=== PATIENT | female | born 1930 | race Caucasian/White ===

== ENCOUNTER 2017-04-23 18:41 | Inpatient (IN) | payer MEDICARE, OTHER ==
[2017-04-23] MEDS ORDERED: Ondansetron HCl/PF 4 MG/2 ML Vial ONE (18:59)
[2017-04-23] MEDS ORDERED: Dextrose 5% in Water 1,000 ML IV PRN ×2 (19:41→20:01)
[2017-04-23] MEDS ORDERED: Dextrose 50% Abboject 50 ML SYRINGE SLOW IVP PRN ×2 (19:41→20:01)
[2017-04-23] MEDS ORDERED: HumaLOG 300 UNITS/3 ML VIAL SC PRN (20:01)
--- NOTE | 2017-04-23 20:32 | RAD ---
FOUR VIEWS LEFT SHOULDER 04/23/17 HISTORY: Left shoulder pain after fall. 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 There is narrowing of the subacromial space lik sergey related to chronic rotator cuff tear. There is mild left glenohumeral osteoarthropathy present. N o fracture or dislocation. Diffuse osteopenia is noted. Degenerative change noted in the spine. Vascu lar calcification seen in the thoracic aorta. IMPRESSION: 1. 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 2. Findings suggestive of chronic rotator cuff tear. 3. Osteopenia. 4. No acute fracture. POS: [facility]
[2017-04-23] MEDS ORDERED: Famotidine 20 MG TAB PO SCH (21:00)
[2017-04-23 21:20] LABS: CKMB 3.4 ng/mL (0-6.6); Troponin I 0.285 ng/mL (< 0.028)
[2017-04-23] MEDS ORDERED: Promethazine HCl 25 MG/ML VIAL IM/IV PRN (21:28)
[2017-04-23] MEDS ORDERED: Acetaminophen 650 MG in Premix Bag 1 BAG IVPB SCH (21:30)
[2017-04-23] MEDS ORDERED: Dextrose 5 % And 0.9 % NaCl 1,000 ML IV SCH (21:30)
[2017-04-23] MEDS: Scopolamine 1.5 mg/72 hour Patch TD SCH (21:42)
--- NOTE | 2017-04-23 23:28 | CON ---
DATE OF CONSULTATION: 04/23/2017 ATTENDING PHYSICIAN: Ugo Staley M.D. HISTORY OF PRESENT ILLNESS: This patient is an 87-year-old female with a past medical hist ory of hypertension, hypothyroid, who presented to the [facility] transfer from [place] for a cute intracranial hemorrhage following head injury, which resulted when she slipped on the ice at 153 0 this afternoon while walking to her mailbox, unknown if patient sustained LOC. The patient cannot remember the event. She states that her family was with her during the injury and called EMS. The p ok was taken to the [place] ER where she was evaluated with CT head, which is notable for ri ght temporal and right parietal cerebral contusion, subdural hematoma and bilateral subarachnoid hemo rrhage. There was no midline shift. CT of the cervical spine was negative for any acute injuries, b ut patient did continue to complain of neck pain; therefore, it was placed in a cervical collar. I a m seeing the patient at bedside. She is alert and oriented x4. She has normal speech. She has good strength to right upper and lower extremity. She has left-sided hemiparesis with flaccid paralysis of the left upper extremity; however, she is able to wiggle her left toes. PAST MEDICAL HISTORY: Hypertension, hypothyroidism. PAST SURGICAL HISTORY: Left hip surgery. SOCIAL HISTORY: The patient lives at home. She does not smoke, drink or use any drugs. ALLERGIES: She has no known drug allergies. REVIEW OF SYSTEMS: Per HPI. PHYSICAL EXAMINATION: VITAL SIGNS: Blood pressure is 132/55, respiration rate is 19, patient is 97% on room air, pulse is 78, and temperature is 98.6. CONSTITUTIONAL: She is in no acute distress. She is alert and oriented x4. HEENT: She has small area of contusion and soft tissue swelling over the left parietal region. EYES: PERRLA. Extraocular movements intact. Sclerae white. ENT: Oral mucosa is pink, intact, and moist. No evidence of trauma to the nose. NECK: She is currently in a cervical collar. She is tender to palpation diffusely over the cervical spine. RESPIRATORY: She is breathing comfortably. No evidence of dyspnea, symmetric chest expansion. CARDIOVASCULAR: Regular rate and rhythm. MUSCULOSKELETAL: She has good strength in right upper and right lower extremity. Left-sided hemipar esis is present. The patient has flaccid paralysis to the left upper extremity. She is able to wigg le her left toes. NEUROLOGIC: The patient is alert and oriented x4. She has normal speech pattern. Left-sided hemipa resis. ASSESSMENT: Acute traumatic right temporal and right parietal cerebral contusion and subdural hemato ma, bilateral subarachnoid hemorrhages, which are traumatic. PLAN: The patient will be admitted to the ICU for q.1 neuro checks and close monitoring. Head of e bed will be elevated at 30 degrees. We will monitor the patient's blood pressure closely with a go al of systolic blood pressure less than 150. She does report history of aspirin use and this will be discontinued. We will plan to repeat head CT for further evaluation in the morning. The patient is admitted primarily to the Trauma Service. I have discussed this plan with Dr. Staley who is in reement. Please reach out to Neurosurgery Service for additional questions or concerns.
--- NOTE | 2017-04-23 23:44 | HP ---
DATE OF SERVICE: 04/23/2017 ATTENDING PHYSICIAN: Dr. Odonnell. TRAUMA ACTIVATION: Not applicable. HISTORY OF PRESENT ILLNESS: This is an 87-year-old female who presented to [facility] as a transfer from [facility]. Per patient, she was walking outside of her house to her mailbox, slipped on the ice and fell backward, striking her head. She was taken to the emergency room and found to have bilateral subarachnoid hemorrhages with intraparenchymal hematomas right greater than left. The patient was noted to have left-sided hemiparesis. The patient is unsure as to whether or not she lost consciousness. She was transferred to [facility] for further evaluation and care. Upon my evaluation, Neurosurgery has seen the patient. She has a GCS of 15. Her only complaint is some bilateral lateral neck pain. There is no midline tenderness. The patient does appear to have some slowed response and there was some report of dysarthria at the outside facility, unclear if this is her baseline or new since her accident as there is no family at bedside. PAST MEDICAL HISTORY: ALLERGIES: The patient denies any allergies. CHRONIC MEDICAL ILLNESSES: Include hypertension, hypothyroidism, diabetes. PAST SURGICAL HISTORY: Left hip surgery, appendectomy, hysterectomy. SOCIAL HISTORY: The patient lives with daughter. Typically ambulates independently. Denies alcohol, tobacco or illicit drug use. HOME MEDICATIONS: Synthroid, unknown; antihypertensive, dose is unknown at this time. FAMILY HISTORY: Noncontributory in this patient. REVIEW OF SYSTEMS: Negative except as indicated in the HPI. PHYSICAL EXAMINATION: VITAL SIGNS: On evaluation, blood pressure 127/47, heart rate 77, O2 sat 95% on room air, respirations 16. GENERAL: Elderly appearing female, in no acute distress, resting in bed. HEENT: Head: Normocephalic. Eyes: Pupils are PERRL. Extraocular movements are intact. There is a right parietal hematoma. NECK: Supple. Trachea is midline. Ramsey C-collar is in place. CHEST/PULMONARY: Normal work of breathing. Symmetric rise. Appears atraumatic. Lungs are clear to auscultation bilaterally. CARDIOVASCULAR: Regular rate and rhythm. GASTROINTESTINAL/ABDOMEN: Atraumatic, soft, nontender, nondistended. Bowel sounds are positive. BACK: Being reported within normal limits. MUSCULOSKELETAL: No tenderness to palpation bilaterally, there is 0/5 strength in the bilateral left extremities. Strength within normal limits in right- sided extremities. NEUROLOGIC: GCS of 15. No sensory deficit noted. LABORATORY DATA: WBC 14.2, hemoglobin 10.8, hematocrit 32.7, platelet count 132. INR 1.1. Sodium 143, potassium 3.7, chloride 107, carbon dioxide 25, BUN 25, creatinine 1.07, glucose 195, AST and ALT within normal limits. Troponin 0.063. RADIOGRAPHIC FINDINGS: EKG with nonspecific ST-T wave abnormality. T-spine CT without evidence of acute fracture or dislocation, but evidence of degenerative changes. CT of the C-spine negative for acute fracture or dislocation, but showed evidence of degenerative changes. CT of the brain, read by Radiology as having bilateral subarachnoid hemorrhage with larger parenchymal hematoma in the right frontoparietal region and a small parenchymal hematoma in the right temporal lobe with evidence of left anterior frontal subdural hematoma. X-ray of the left shoulder pending. Assessment: Mechanical fall, SAH, SDH, IPH. L shoulder pain. Hx HTN, Hx DM. PLAN: Admit to Trauma Services. CCU for closer monitoring per Neurosurgery's recommendations. Frequent neuro checks. Pain control. DVT and gastritis prophylaxis as appropriate. PT, OT, speech evaluation. Rehab screen. Trend troponins. A.m. CT per Neurosurgery. Head of bed 30 degrees. Systolic blood pressure 150 or less. Trauma attending has been notified of admission. Plans for admission were discussed with the patient at bedside, who localized her agreement. All questions were answered at the time of this dictation. SOL
[2017-04-24] MEDS: traMADol HCl 50 MG TAB PO PRN (00:57)
[2017-04-24 04:33] LABS: #Lymphocytes 0.6 thou/uL (1.20-3.40); #Monocytes 0.4 thou/uL (0.11-0.59); #Neutrophils 7.4 thou/uL (1.40-6.50); %Basophils 0.1 % (0.0-1.0); %Eosinophils 0.1 % (0.0-10.0); %Lymphocytes 7.4 % (21.0-51.0); %Monocytes 5.2 % (0.0-10.0); %Neutrophils 87.2 % (42.0-75.0); Hemoglobin 10.2 g/dL (12.0-16.0); Mean Corpuscular HGB CONC 32.9 g/dL (32.0-36.0); Mean Corpuscular Hemoglobin 30.2 pg (27.0-31.0); Mean Corpuscular Volume 91.6 fl (81.0-99.0); Mean Platelet Volume 9.2 fL (7.4-10.4); PLT Morphology Comment Appears Decreased; Platelet Count 112 thou/uL (130-400); RBC Distribution Width 11.7 % (11.5-14.5); White Blood Cell (WBC) Count 8.5 thou/uL (4.8-10.8)
[2017-04-24 04:42] LABS: CKMB 3.3 ng/mL (0-6.6)
[2017-04-24] MEDS: Acetaminophen 500 MG TAB PO SCH ×3 (05:22→17:08)
[2017-04-24 05:32] LABS: Anion Gap 12 mmol/L (10-20); BUN (Urea Nitrogen) 24 mg/dL (9.8-20.1); Calc. Creatinine Clearance 25 mL/min (70-130); Calcium 10.5 mg/dL (7.8-10.44); Carbon Dioxide 24 mmol/L (23-31); Chloride 107 mmol/L (98-107); Estimated GFR-MDRD 41; Glucose 184 mg/dL (83-110); Magnesium 2.1 mg/dL (1.6-2.6); Phosphorus 2.7 mg/dL (2.3-4.7); Potassium 3.9 mmol/L (3.5-5.1); Sodium 139 mmol/L (136-145)
[2017-04-24] MEDS: Famotidine 20 MG TAB PO SCH (08:21)
[2017-04-24] MEDS: Sodium Chloride 0.9% 1,000 ML IV SCH (08:21)
[2017-04-24] MEDS: Ondansetron HCl/PF 4 MG/2 ML Vial IVP PRN (12:54)
--- NOTE | 2017-04-24 14:25 | CON ---
HISTORY: Corrina Headley is an 87-year-old white female without any previous cardiac problems. She presented yesterday to the [facility] after she slipped on the ice and fell backwards striking her head. It is unclear if she was rendered unconscious from the fall. She does not remember much of the incident and is not very talkative. She has been found to have an elevated troponin. She denies any chest discomfort since she has been hospitalized. She does state at times she has some pain in her upper left chest around her shoulder area. She is unable to give me any history regarding how long it lasts or how often she gets that. PAST MEDICAL HISTORY: Hypertension, hypothyroidism, diabetes. MEDICATIONS: Ramipril 10 mg daily, hydrochlorothiazide 25 q.a.m., levothyroxine 75 mg daily. ALLERGIES: None. OPERATIONS: Left hip surgery, appendectomy, and hysterectomy. SOCIAL HISTORY: She does not smoke or drink. She lives with her daughter. FAMILY HISTORY: Negative for coronary artery disease. REVIEW OF SYSTEMS: Twelve point review of systems is very difficult to obtain with the patient not answering most questions. PHYSICAL EXAMINATION: VITAL SIGNS: 113/46, pulse is 70. HEENT: PERRL. NECK: Patient is in a neck brace. CHEST: Clear. CARDIAC: S1 and S2 are normal, without any S3, S4 or murmurs. ABDOMEN: Normal bowel sounds, without tenderness or organomegaly. EXTREMITIES: Revealed no clubbing, cyanosis or edema. NEUROLOGIC: Patient is lethargic, but moves all extremities. SKIN: Warm and dry. LABORATORY DATA: EKG revealed normal sinus rhythm with nonspecific ST changes ( EKG is incorrectly interpreted by the computer as accelerated junctional rhythm , but there are P waves present). Hemoglobin 10.2, hematocrit 31.1, white count 8500, platelets 112,000, INR 1.1, sodium 139, potassium 3.9, chloride 107 , carbon dioxide 24, BUN 24, creatinine 1.24 and MB are normal x2. Troponin I is 0.285 and then increased to 0.484, blood sugars were 180, [address] revealed bilateral subarachnoid hemorrhages and a small left anterior frontal subdural hematoma. Echocardiogram revealed ejection fraction of 55-60% with evidence of diastolic dysfunction, moderate calcification of the anterior leaflet of mitral valve, mild mitral regurgitation, mild to moderate tricuspid regurgitation and mild pulmonic regurgitation. IMPRESSION: 1. Bilateral subarachnoid hemorrhage and small left anterior frontal subdural hematoma after head trauma when slipping on the ice. 2. Hypertension. 3. Hypothyroidism. 4. Questionable history of diabetes, she is not on any diabetic medications on her home medicine list. PLAN: The patient certainly may have had a STEMI, although this also could represent demand ischemia. Her CK-MBs are normal. The patient is not a candidate for any type of cardiac intervention at this time with her intracranial bleeds. We will continue to follow the patient with you at some later time. Further evaluation may be warranted after she has recovered from her current head trauma. SOL
--- NOTE | 2017-04-24 15:38 | CT ---
CT OF HEAD NONCONTRAST 04/24/17 COMPARISON: 04/23/17 CLINICAL HISTORY: Intracranial hemorrhage, followup. FINDINGS: Redemonstration of diffuse extra-axial as well as intra-axial hemorrhage. Nidus of parenchymal hemor rhage is present at the high right frontal lobe with prominent degree of surrounding vasogenic edema. Redemonstration of parenchymal hematoma at the lateral right temporal lobe and the anterior left fro ntal lobe. Diffuse subarachnoid hemorrhage remains. Ventricular system is grossly stable. Midline str uctures are preserved at midline. IMPRESSION: Redemonstration of diffuse intra-axial and extra-axial hemorrhage bilaterally with multifocal parench ymal contusions of each cerebral hemisphere. No new significant midline shift. Diffuse subarachnoid h emorrhage remains, bilaterally. Interval evolution of left subdural hemorrhage with majority now demonstrating isodensity relative to CSF. POS: [facility]
[2017-04-24] MEDS ORDERED: FLU VACC TS2017-18 (>65YR) 0.5 ML SYRINGE IM ONE (16:00)
[2017-04-24] MEDS ORDERED: Prevnar 13-Val Conj/PF 0.5 ML SYRINGE IM ONE (16:00)
--- NOTE | 2017-04-24 16:01 | PRG ---
DATE OF SERVICE: 04/24/2017 SUBJECTIVE: The patient is hospital day #2 status post ground level fall in which she sustained a subarachnoid, subdural and intraparenchymal hemorrhage and also was noted to have some significant left-sided weakness. The patient had no issues overnight. This morning, complains primarily of headache, but otherwise states that she is feeling "okay." The patient is a rather poor historian, will follow some very basic commands primarily with her right side with definite left-sided hemiparesis. The patient will answer some simple questions. Unfortunately, there are no family members at bedside to tell us what her baseline is and when the hemiparesis may have started, whether it was before or after the fall. PHYSICAL EXAMINATION: VITAL SIGNS: Temperature is 98.4, heart rate 70, blood pressure 113/46, respirations 18, and oxygen saturation is 100% on room air. GENERAL: Patient is resting comfortably in bed. She is awake. Her Jodie coma scale was 15. Again, does not move her left side. HEENT: Shows a small contusion to the right side of her posterior lateral scalp. The remainder of her HEENT is unremarkable. Trachea is midline. No JVD. LUNGS: Chest is clear to auscultation with moderate inspiratory and expiratory effort. HEART: Regular rate and rhythm. ABDOMEN: Soft, flat with active bowel sounds. EXTREMITIES: Pulses are 2+ in all 4 extremities. Strength in the right upper and lower are 4/5 and the left side of the upper extremity is flaccid. There does seem to be some movement when asked to wiggle the left toes, but this is very subtle. LABORATORY DATA: White blood cell count 8.5, hemoglobin 10.2, hematocrit 31.1, platelets 112. Sodium 139, potassium 3.9, chloride 107, CO2 of 24, BUN 24, creatinine 1.24, glucose 184, magnesium 2.1, and phosphorus 2.7. There are no radiographs to review this morning. ASSESSMENT AND PLAN: 1. Status post ground level fall. 2. Intercerebral hemorrhage. 3. Probable cerebrovascular accident. 4. Left-sided paralysis. Plan will be to continue supportive care, OT, PT evaluation, speech evaluation and we will consult the stroke team. SOL
[2017-04-24] MEDS: Acetaminophen 1,000 MG in Premix Bag 1 BAG IVPB SCH (19:17)
--- NOTE | 2017-04-25 00:27 | PRG ---
DATE OF SERVICE: 04/24/2017 SUBJECTIVE: This is an 87-year-old female status post fall with traumatic brain injury and left-side d hemiparesis. Repeat CT scan was performed earlier today. She was seen by Cardiology. Patient has remained stable and was transferred from the Intermediate Care Unit to the stroke unit earlier today . Upon my evaluation, the patient did not vocalize any complaints and denied any pain. OBJECTIVE: VITAL SIGNS: Reviewed and stable. GENERAL: Resting in bed, in no acute distress. LUNGS: Breathing is nonlabored. NEUROLOGIC: The patient remains with left-sided deficit. PHYSICAL EXAMINATION: Unchanged from earlier today. ASSESSMENT AND PLAN: As documented daily progress note. Continue care as ordered. Continue to [facility].
[2017-04-25] MEDS: Sodium Chloride 0.9% 1,000 ML IV SCH ×2 (02:12→15:01)
[2017-04-25] MEDS: Acetaminophen 1,000 MG in Premix Bag 1 BAG IVPB SCH ×5 (02:14→23:11)
[2017-04-25 05:56] LABS: #Lymphocytes 1.1 thou/uL (1.20-3.40); #Monocytes 0.6 thou/uL (0.11-0.59); #Neutrophils 5.3 thou/uL (1.40-6.50); %Eosinophils 0.3 % (0.0-10.0); %Lymphocytes 16.1 % (21.0-51.0); %Monocytes 8.7 % (0.0-10.0); %Neutrophils 74.9 % (42.0-75.0); Hemoglobin 9.7 g/dL (12.0-16.0); Mean Corpuscular HGB CONC 32.3 g/dL (32.0-36.0); Mean Corpuscular Hemoglobin 30.1 pg (27.0-31.0); Mean Corpuscular Volume 93.3 fl (81.0-99.0); Mean Platelet Volume 9.7 fL (7.4-10.4); Platelet Count 105 thou/uL (130-400); RBC Distribution Width 11.8 % (11.5-14.5); Red Blood Cell (RBC) Count 3.24 mill/uL (4.20-5.40); White Blood Cell (WBC) Count 7.1 thou/uL (4.8-10.8)
[2017-04-25 06:06] LABS: Anion Gap 10 mmol/L (10-20); BUN (Urea Nitrogen) 25 mg/dL (9.8-20.1); Calc. Creatinine Clearance 26 mL/min (70-130); Calcium 10.4 mg/dL (7.8-10.44); Carbon Dioxide 27 mmol/L (23-31); Chloride 108 mmol/L (98-107); Estimated GFR-MDRD 47; Glucose 112 mg/dL (83-110); Potassium 3.7 mmol/L (3.5-5.1); Sodium 141 mmol/L (136-145)
[2017-04-25] MEDS: Acetaminophen 500 MG TAB PO SCH (07:07)
[2017-04-25] MEDS: Ondansetron HCl/PF 4 MG/2 ML Vial IVP PRN (07:27)
[2017-04-25] MEDS: hydrALAZINE 20 MG/ML VIAL SLOW IVP PRN (07:27)
[2017-04-25] MEDS: Famotidine 20 MG TAB PO SCH (08:00)
[2017-04-25] MEDS: traMADol HCl 50 MG TAB PO PRN (08:55)
[2017-04-25 11:09] VITALS: BMI 15.7
--- NOTE | 2017-04-25 20:57 | PRG ---
DATE OF SERVICE: 04/25/2017 SUBJECTIVE: This is an 87-year-old female status post fall with traumatic brain injury and left-side d hemiparesis. The patient has remained stable throughout the day. Family is currently discussing g oals of care with Palliative Care team. There is a family meeting set up for tomorrow. Pulmonary ev aluation. The patient has no complaint. OBJECTIVE: VITAL SIGNS: Reviewed and stable. GENERAL: The patient resting in bed, in no acute distress. LUNGS: Breathing is nonlabored. NEUROLOGIC: Unchanged from previous. ASSESSMENT AND PLAN: As documented daily progress note. Continue care as ordered. Continue to [facility]. A family meeting per day shift team tomorrow.
[2017-04-26] MEDS: Acetaminophen 1,000 MG in Premix Bag 1 BAG IVPB SCH ×3 (05:23→17:52)
[2017-04-26] MEDS: Levothyroxine Sodium 75 MCG TAB PO SCH (05:28)
[2017-04-26] MEDS: Sodium Chloride 0.9% 1,000 ML IV SCH (09:17)
[2017-04-26] MEDS: Famotidine 20 MG TAB PO SCH (09:18)
[2017-04-26] MEDS: Hydrochlorothiazide 25 MG TAB PO SCH (09:18)
[2017-04-26] MEDS: hydrALAZINE 20 MG/ML VIAL SLOW IVP PRN ×2 (09:25→19:19)
--- NOTE | 2017-04-26 16:39 | PRG ---
DATE OF SERVICE: 04/26/2017 ATTENDING PHYSICIAN: Clement Smith D.O. SUBJECTIVE: The patient is hospital day #4 status post ground level fall in which she sustained a bilateral subarachnoid hemorrhage as well as a subdural hematoma and intraparenchymal hemorrhage, and was also noted to have some significant left-sided hemiparesis. Her main complaint this morning is pain. She had an NG tube placed yesterday that she subsequently pulled out. She is alert and conversational today on exam and has expressed a desire not to have another NG tube placed. OBJECTIVE: GENERAL: Elderly female lying in bed, alert, and talkative, but appearing in pain. HEAD: Normocephalic. Right-sided posterior contusion of the scalp. LUNGS: Clear to auscultation bilaterally. CARDIOVASCULAR: Regular rate and rhythm. ABDOMEN: Soft, nondistended. Normal bowel sounds. MUSCULOSKELETAL: Continued left-sided hemiparesis. Strength 0/5 in left extremities. Strength 4/5 in right extremities. NEUROLOGIC: GCS 15. Alert and oriented x3. ASSESSMENT: 1. Bilateral subarachnoid hemorrhage. 2. Cerebral contusion. 3. Subdural hematoma. 4. Left-sided hemiplegia. 5. History of hypertension. 6. History of hypothyroidism. PLAN: We will start her on a mechanical soft diet as she has expressed a desire not to have an NG tube. Speech language pathology will continue to follow as well PT and OT. Palliative Care has consulted with the patient and her son this morning and they all agreed to rehab eval at [facility]. Continue Ofirmev and tramadol for pain. Continue HCTZ and IV hydralazine for BP management. Continue home levothyroxine for thyroid. This patient was seen and discussed with Dr. Smith who agrees with this assessment and plan. [facility]
[2017-04-26] MEDS: traMADol HCl 50 MG TAB PO PRN (19:56)
[2017-04-26] MEDS: Ondansetron ODT 4 MG TAB PO PRN (20:15)
[2017-04-26] MEDS: Scopolamine 1.5 mg/72 hour Patch TD SCH (21:00)
[2017-04-26] MEDS: Sulfameth/Trimethoprim DS 800-160mg TAB PO SCH (21:00)
[2017-04-26 21:10] LABS: Bilirubin Negative (Negative); Blood, Urine Negative (Negative); Clarity CLEAR (Clear); Glucose, Urine (Dipstick) Negative (Negative); Leukocyte Trace (Negative); Nitrite Negative (Negative); Protein, Urine (Dipstick) Negative (Neg-Trace); Specific Gravity, Urine 1.026 (1.002-1.036); Urobilinogen 0.2 mg/dL (0.2-1.0); pH, Urine 5.5 (5.0-9.0)
[2017-04-26 21:11] LABS: Bacteria/HPF 3+ HPF (None Seen); Hyaline Casts/LPF 0-3 HYALINE CAST LPF (0-3 Hyaline); Pathc Cast-AUWi Flag 0.27 (0-2.49); RBC/HPF 0-3 HPF (0-3); Squamous Epithelial None Seen HPF (0-3)
--- NOTE | 2017-04-26 21:41 | PRG ---
DATE OF SERVICE: 04/26/2017 SUBJECTIVE: This is an 87-year-old female status post mechanical fall, found to have significant intracranial hemorrhage. She is more alert this evening than she was yesterday. However, she is quite tearful and is complaining of dysuria. The patient did have a Villalpando catheter earlier in her hospital stay. OBJECTIVE: VITAL SIGNS: Reviewed, some hypertension, but otherwise stable. GENERAL: The patient is resting in bed in mild distress secondary to pain. Physical exam is otherwise unchanged from earlier today. ASSESSMENT AND PLAN: As documented in daily progress note with the addition of dysuria. We will obtain urinalysis. We will start oral antibiotics for suspected urinary tract infection. Continue pain management as ordered. Addendum: Approximately 2300 pt developed chest pain was noted by RN to have rapid, irregular HR. EKG revealed afib w/RVR. She is hemodynamically stable with an SBP in the 120's, HR 130's O2 98% on NC. BMP from earlier today noted. Will start amio bolus/gtt. Replace electrolytes, obtain CE's, am labs, transfer pt to tele and contact CVM. Additional time spent, 20 minutes at bedside. SOL
[2017-04-26] MEDS ORDERED: Potassium Phosphate 30 MMOL in Sodium Chloride 0.9% 500 ML IVPB SCH (23:15)
[2017-04-26] MEDS ORDERED: Amiodarone HCl 150 MG in Dextrose 5% in Water 100 ML IVPB SCH ×2 (23:30)
[2017-04-27 00:16] LABS: Troponin I 0.755 ng/mL (< 0.028)
[2017-04-27] MEDS: Amiodarone In Dextrose 200 ML IVPB SCH ×2 (00:22→05:46)
[2017-04-27] MEDS: Acetaminophen 500 MG TAB PO SCH ×5 (01:07→20:55)
[2017-04-27] MEDS: Acetaminophen 1,000 MG in Premix Bag 1 BAG IVPB SCH ×4 (01:08→17:28)
[2017-04-27 01:11] LABS: ALT (SGPT) 12 U/L (8-55); AST (SGOT) 27 U/L (5-34); Albumin 3.6 g/dL (3.4-4.8); Alkaline Phosphatase 56 U/L (40-150); Bilirubin, Direct 0.3 mg/dL (0.1-0.3); Bilirubin, Total 0.6 mg/dL (0.2-1.2); Protein, Total 6.5 g/dL (6.0-8.3)
[2017-04-27] MEDS: Levothyroxine Sodium 75 MCG TAB PO SCH (05:47)
[2017-04-27 05:51] LABS: #Lymphocytes 1.1 thou/uL (1.20-3.40); #Monocytes 0.7 thou/uL (0.11-0.59); %Basophils 0.4 % (0.0-1.0); %Eosinophils 0.3 % (0.0-10.0); %Lymphocytes 12.5 % (21.0-51.0); %Neutrophils 78.8 % (42.0-75.0); Hemoglobin 11.5 g/dL (12.0-16.0); Mean Corpuscular HGB CONC 32.3 g/dL (32.0-36.0); Mean Corpuscular Hemoglobin 29.9 pg (27.0-31.0); Mean Corpuscular Volume 92.7 fl (81.0-99.0); Mean Platelet Volume 9.4 fL (7.4-10.4); Platelet Count 128 thou/uL (130-400); RBC Distribution Width 12.1 % (11.5-14.5); Red Blood Cell (RBC) Count 3.83 mill/uL (4.20-5.40); White Blood Cell (WBC) Count 8.9 thou/uL (4.8-10.8)
[2017-04-27] MEDS: Ondansetron ODT 4 MG TAB PO PRN (06:02)
[2017-04-27 06:23] LABS: Anion Gap 16 mmol/L (10-20); BUN (Urea Nitrogen) 23 mg/dL (9.8-20.1); Calc. Creatinine Clearance 28 mL/min (70-130); Calcium 10.5 mg/dL (7.8-10.44); Carbon Dioxide 22 mmol/L (23-31); Chloride 106 mmol/L (98-107); Estimated GFR-MDRD 51; Glucose 117 mg/dL (83-110); Magnesium 2.1 mg/dL (1.6-2.6); Phosphorus 4.4 mg/dL (2.3-4.7); Potassium 3.6 mmol/L (3.5-5.1); Sodium 140 mmol/L (136-145)
[2017-04-27 06:25] LABS: CKMB 12.1 ng/mL (0-6.6); Troponin I 1.511 ng/mL (< 0.028)
[2017-04-27] MEDS ORDERED: Potassium Chloride 40 MEQ in Sodium Chloride 0.9% 500 ML IVPB SCH ×4 (06:45)
[2017-04-27] MEDS ORDERED: Magnesium Sulfate 3 GM in Sodium Chloride 0.9% 100 ML IVPB SCH (07:00)
[2017-04-27] MEDS: Famotidine 20 MG TAB PO SCH (09:52)
[2017-04-27] MEDS: Sulfameth/Trimethoprim DS 800-160mg TAB PO SCH ×2 (09:52→20:55)
[2017-04-27] MEDS: Hydrochlorothiazide 25 MG TAB PO SCH (09:52)
--- NOTE | 2017-04-27 13:13 | PRG ---
DATE OF SERVICE 04/27/2017 ATTENDING PHYSICIAN: Nii Knox M.D. SUBJECTIVE: The patient is an 87-year-old female who was admitted on 2017 status post mechanical fall during which she suffered a traumatic bilateral subarachnoid hemorrhage. She also suffered a subdural hematoma as well as an intraparenchymal hemorrhage. Overnight she complained of chest pain and was found to be in atrial fibrillation with RVR, heart rate in the 130s. She was started on an amiodarone drip after which she converted to normal sinus rhythm. She also had an elevated troponin and was transferred to the [facility] for further monitoring. This morning she was stable, alert and not complaining of any pain. OBJECTIVE: GENERAL: Elderly female lying in bed, alert but quiet. HEENT: Normocephalic. Right-sided posterior contusion of the scalp. LUNGS: Clear to auscultation bilaterally. CARDIOVASCULAR: Regular rate and rhythm. Normal S1 and S2. ABDOMEN: Soft, nondistended, nontender. Normal bowel sounds. MUSCULOSKELETAL: Continued left-sided hemiparesis. Strength 0/5 in left extremities, strength 4/5 in the right extremities. NEUROLOGIC: GCS of 15, alert and oriented x3. LABORATORY DATA: 04/26/2017, 23:59: CK-MB 7.0. Troponin 0.755. 04/27/2016, 23:59: CK-MB is 12.1, troponin is 1.511. Urinalysis: Trace urine ketones, trace leukocyte esterase, 3+ urine bacteria. ASSESSMENT: 1. Bilateral subarachnoid hemorrhage. 2. Cerebral contusion. 3. Subdural hematoma. 4. Left-sided hemiplegia. 5. Atrial fibrillation with rapid ventricular response. 6. History of hypertension. 7. History of hypothyroidism. 8. Urinary tract infection PLAN: We are awaiting family meeting with palliative care. We will continue supportive care in the meantime. Cardiology evaluation pending. She is receiving bactrim for her UTI. This patient was discussed with Dr. Smith, who agrees with the assessment and plan. [facility]
--- NOTE | 2017-04-27 19:59 | PDOC.CTH ---
Cardiology Progress Note - Subjective She went into afib earlier today. Remains minimally responsive. - Objective Vital Signs Temp Pulse Pulse Resp BP BP Pulse Ox 04/27/17 12:02 98.1 F 62 16 150/67 H 94 L 04/27/17 11:40 62 150/67 H Admit Weight 105 lb 2.568 oz Weight 100 lb 6.4 oz 04/26/17 04/27/17 04/28/17 06:59 06:59 06:59 Intake Total 120 Balance 120 - Physical Examination General/Neuro: other: (Unresponsive. ) Neck: no JVD present Lungs: unlabored respirations Heart: RRR Abdomen: NT/ND Extremities: + edema B (trace) - Telemetry Telemetry Rhythm: Afib --> S Ced - Labs Result Diagrams: 04/27/17 05:34 04/27/17 05:34 Troponin/CKMB CK-MB (CK-2) 12.1 ng/mL (0-6.6) H* 04/27/17 05:34 Troponin I 1.511 ng/mL (< 0.028) H* 04/27/17 05:34 - Assessment/Plan 1. Traumatic SAH and SDH. 2. NSTEMI, demand ischemia most likely 3. HTN 4. Paroxismal afib PLAN: - We started amiodarone vernigfht and her afib converted back to sinus rhythm. Continue amio gtt for now. ADDENDUM. Family decided to transfer to inpatient hospice which is reasonable. Will stop amiodarone drip and will transition out of telemetry.
--- NOTE | 2017-04-27 20:29 | PRG ---
DATE OF SERVICE: 04/27/2017 SUBJECTIVE: This is an 87 [id number] status post fall with hemorrhagic brain injury. Last nigh t, the patient went into atrial fibrillation with rapid ventricular response, was found to have a cli mbing troponin and urinary tract infection. Today, the patient has refused care, stating that she do es not want to undergo any further procedure. She has refusing medications. Family was at bedside a nd this was discussed. There are plans to evaluate her for hospice for tomorrow morning. OBJECTIVE: VITAL SIGNS: Reviewed and stable. GENERAL: The patient was resting in bed, in no acute distress. RESPIRATORY: Breathing is nonlabored. ASSESSMENT AND PLAN: As documented in daily progress note. Continue comfort measures. Await hospic e transfer tomorrow. Continue to monitor.
[2017-04-27] MEDS: hydrALAZINE 20 MG/ML VIAL SLOW IVP PRN (20:54)
[2017-04-27] MEDS: Melatonin 3 MG TAB PO PRN (20:55)
[2017-04-28 05:05] LABS: Anion Gap 12 mmol/L (10-20); BUN (Urea Nitrogen) 24 mg/dL (9.8-20.1); Calc. Creatinine Clearance 31 mL/min (70-130); Calcium 10.7 mg/dL (7.8-10.44); Carbon Dioxide 26 mmol/L (23-31); Chloride 105 mmol/L (98-107); Estimated GFR-MDRD 56; Glucose 119 mg/dL (83-110); Magnesium 2.1 mg/dL (1.6-2.6); Phosphorus 2.7 mg/dL (2.3-4.7); Potassium 3.7 mmol/L (3.5-5.1); Sodium 139 mmol/L (136-145)
[2017-04-28] MEDS: Acetaminophen 500 MG TAB PO SCH ×3 (05:13→17:21)
[2017-04-28] MEDS: Levothyroxine Sodium 75 MCG TAB PO SCH (05:13)
[2017-04-28] MEDS: Ondansetron HCl/PF 4 MG/2 ML Vial IVP PRN (09:28)
[2017-04-28] MEDS: Sulfameth/Trimethoprim DS 800-160mg TAB PO SCH ×2 (12:15→21:10)
[2017-04-28] MEDS: Hydrochlorothiazide 25 MG TAB PO SCH (12:15)
[2017-04-28] MEDS: Famotidine 20 MG TAB PO SCH (12:15)
--- NOTE | 2017-04-28 16:24 | PRG ---
DATE OF SERVICE: 04/28/2017 SUBJECTIVE: The patient is an 87-year-old female who was admitted on 2017 status post mechanical fall during which she suffered a traumatic bilateral subarachnoid hemorrhage. She has also suffered a subdural hematoma as well as an intraparenchymal hemorrhage. She had an episode of atrial fibrillation with RVR, heart rate in the 130s, and was started on an amiodarone drip after which she converted to normal sinus rhythm. This morning she is nauseous and has been dry heaving. She is refusing further medications including medications for nausea. After consultation with family, the decision was made to transfer the patient to hospice care, although at this point, it is unclear whether she will go to inpatient or outpatient hospice. OBJECTIVE: VITAL SIGNS: Blood pressure 154/66, pulse 73, temperature 97.5, respirations 14 , O2 sats 100% on room air. GENERAL: Elderly female lying in bed, somewhat agitated. HEENT: Head normocephalic and atraumatic. LUNGS: Clear to auscultation bilaterally. CARDIOVASCULAR: Regular rate and rhythm. Normal S1 and S2. ABDOMEN: Soft, nontender, nondistended. Normal bowel sounds. MUSCULOSKELETAL: Continued left-sided hemiparesis. Strength 0/5 in left extremities, strength 4/5 in the right extremities. NEUROLOGIC: GCS of 15, alert and oriented x3. LABORATORY DATA: Chemistry: Sodium 139, potassium 3.7, chloride 105, carbon dioxide 26, BUN 24, creatinine 0.94, glucose 119, calcium 10.7, phosphorus 2.7, magnesium 2.1. ASSESSMENT: 1. Bilateral subarachnoid hemorrhage. 2. Cerebral contusion. 3. Subdural hematoma. 4. Left-sided hemiplegia. 5. Atrial fibrillation with rapid ventricular response. 6. History of hypertension. 7. History of hypothyroidism. 8. Urinary tract infection. PLAN: The patient as well as her family have decided the best option for Ms. Headley to transfer to hospice care. She is currently refusing food or medication, but we will continue to keep supportive care measures on order in case the patient desires them. Cardiology has recommended stopping her amiodarone drip, given plans to transfer the patient to hospice care. Case management is working with the family and the Palliative Care Team to find appropriate placement. This patient was discussed with Dr. Clement Smith who agrees with this assessment and plan. [facility]
--- NOTE | 2017-04-28 19:59 | PRG ---
DATE OF SERVICE: 04/28/2017 SUBJECTIVE: This is an 87-year-old female status post mechanical fall and intracranial hemorrhage. Patient's family and patient are discussing inpatient versus home hospice options. Patient continues to refuse any therapy, medications, or food. Upon my evaluation, she vocalizes no complaints. OBJECTIVE: VITAL SIGNS: Reviewed and stable. GENERAL: Patient is resting in bed in no acute distress. CHEST: Breathing is nonlabored. ASSESSMENT AND PLAN: As documented in daily progress note. Continue care as ordered. Continue to m onitor.
[2017-04-29] MEDS: Melatonin 3 MG TAB PO PRN (00:04)
[2017-04-29] MEDS: Acetaminophen 500 MG TAB PO SCH ×4 (00:04→18:54)
[2017-04-29] MEDS: Levothyroxine Sodium 75 MCG TAB PO SCH (06:32)
[2017-04-29] MEDS: hydrALAZINE 20 MG/ML VIAL SLOW IVP PRN (06:32)
[2017-04-29] MEDS: traMADol HCl 50 MG TAB PO PRN (06:33)
[2017-04-29] MEDS: Ondansetron HCl/PF 4 MG/2 ML Vial IVP PRN (09:16)
[2017-04-29] MEDS ORDERED: Bisacodyl 10 MG SUPP PR PRN (10:34)
[2017-04-29] MEDS: Hydrochlorothiazide 25 MG TAB PO SCH (10:39)
[2017-04-29] MEDS: Famotidine 20 MG TAB PO SCH (10:40)
[2017-04-29] MEDS: Sulfameth/Trimethoprim DS 800-160mg TAB PO SCH ×2 (10:40→10:48)
[2017-04-29] MEDS: Scopolamine 1.5 mg/72 hour Patch TD SCH (10:41)
[2017-04-29] MEDS ORDERED: hydrALAZINE 20 MG/ML VIAL SLOW IVP PRN (11:53)
[2017-04-29 13:51] LABS: #Monocytes 0.4 thou/uL (0.11-0.59); #Neutrophils 6.2 thou/uL (1.40-6.50); %Basophils 0.1 % (0.0-1.0); %Eosinophils 0.2 % (0.0-10.0); %Lymphocytes 12.4 % (21.0-51.0); %Monocytes 5.6 % (0.0-10.0); %Neutrophils 81.7 % (42.0-75.0); Mean Corpuscular HGB CONC 32.5 g/dL (32.0-36.0); Mean Corpuscular Hemoglobin 30.2 pg (27.0-31.0); Mean Corpuscular Volume 92.9 fl (81.0-99.0); Mean Platelet Volume 9.1 fL (7.4-10.4); Platelet Count 172 thou/uL (130-400); RBC Distribution Width 12.2 % (11.5-14.5); Red Blood Cell (RBC) Count 3.99 mill/uL (4.20-5.40); White Blood Cell (WBC) Count 7.6 thou/uL (4.8-10.8)
[2017-04-29 14:01] LABS: Anion Gap 15 mmol/L (10-20); BUN (Urea Nitrogen) 27 mg/dL (9.8-20.1); Calc. Creatinine Clearance 28 mL/min (70-130); Calcium 11.2 mg/dL (7.8-10.44); Carbon Dioxide 23 mmol/L (23-31); Chloride 106 mmol/L (98-107); Estimated GFR-MDRD 50; Glucose 96 mg/dL (83-110); Magnesium 2.3 mg/dL (1.6-2.6); Phosphorus 2.5 mg/dL (2.3-4.7); Sodium 140 mmol/L (136-145)
--- NOTE | 2017-04-29 15:53 | PRG ---
DATE OF SERVICE: 04/29/2017 ATTENDING PHYSICIAN: Clement Smith DO. SUBJECTIVE: The patient is an 87-year-old female, who was admitted on 2017 status post fall during which she suffered traumatic bilateral subarachnoid hemorrhages. She had a subdural hematoma as well as an intraparenchymal hemorrhage. She has been in atrial fibrillation with RVR with heart rate in the 130s, was started on an amiodarone drip after which she converted to the normal sinus rhythm. This was discontinued per Cardiology recommendations. Since the patient is refusing all medications and per discussion with palliative care and the family, it has been decided that the patient will go to hospice care. This morning, the patient continues to refuse p.o. medications as well as food, although she has agreed to be treated for her ongoing nausea. The patient's family is scheduled to meet with palliative care again tomorrow to discuss taking her home with hospice care. OBJECTIVE: VITAL SIGNS: Blood pressure 154/64, pulse 90, temperature 97.7, respirations 14 , O2 sat is 98% on room air. GENERAL: Elderly female, lying awake in bed. HEENT: Normocephalic and atraumatic. LUNGS: Clear to auscultation bilaterally. CARDIOVASCULAR: Regular rate and rhythm. Normal S1 and S2. ABDOMEN: Soft, nontender, nondistended, normal bowel sounds. MUSCULOSKELETAL: Continue left-sided hemiparesis. Strength is 0/5 in left extremities, 4/5 in right extremities. NEUROLOGIC: She is alert and oriented grossly. LABORATORY DATA: Chemistry: BUN 27, creatinine 1.04, calcium 11.2. ASSESSMENT: 1. Bilateral subarachnoid hemorrhage. 2. Cerebral contusion. 3. Subdural hematoma. 4. Left-sided hemiplegia. 5. Atrial fibrillation with rapid ventricular response. 6. History of hypertension. 7. History of hypothyroidism. 8. Urinary tract infection. PLAN: The patient continues to refuse p.o. medications as well as food, although she has agreed to be treated for ongoing nausea. The patient's family is also scheduled to meet with palliative care again tomorrow. Anticipate discharge tomorrow with hospice care. This patient was seen and examined along with Dr. Smith, who agrees with this assessment and plan. [facility]
[2017-04-29] MEDS ORDERED: Acetaminophen 1,000 MG in Premix Bag 1 BAG IVPB PRN (20:02)
--- NOTE | 2017-04-29 20:20 | EKG ---
Test Reason : Blood Pressure : / mmHG Vent. Rate : 130 BPM Atrial Rate : 136 BPM P-R Int : 000 ms QRS Dur : 078 ms QT Int : 330 ms P-R-T Axes : 000 078 -76 degrees QTc Int : 485 ms Atrial fibrillation with rapid ventricular response Abnormal ECG When compared with ECG of 25-JUN-2007 00:08, Atrial fibrillation has replaced Sinus rhythm Vent. rate has increased BY [address] now depressed in Inferior leads ST now depressed in Anterolateral leads T wave inversion now evident in Inferior leads Confirmed by LAILA ARROYO, . SLeroy ([id number]) on 04/29/2017 8:19:57 PM Referred By: BRITTANY Confirmed By:DR. Collins ULLOA MD
--- NOTE | 2017-04-29 21:54 | PRG ---
DATE OF SERVICE: 04/29/2017 SUBJECTIVE: This is an 87-year-old female status post fall with traumatic intracranial hemorrhage. She is currently awaiting decision from family and palliative care regarding hospice. She was found to be back in atrial fibrillation earlier today, but has since converted to sinus rhythm. Upon my ev aluation, the patient vocalized no complaint. OBJECTIVE: VITAL SIGNS: Reviewed and stable. GENERAL: The patient is resting in bed, in no acute distress. RESPIRATORY: Breathing is nonlabored. ASSESSMENT AND PLAN: As documented in daily progress note. Continue to monitor. Continue care as o rdered.
[2017-04-30] MEDS: Levothyroxine Sodium 75 MCG TAB PO SCH (05:29)
[2017-04-30 05:36] LABS: #Lymphocytes 1.2 thou/uL (1.20-3.40); #Monocytes 0.7 thou/uL (0.11-0.59); #Neutrophils 5.6 thou/uL (1.40-6.50); %Basophils 0.2 % (0.0-1.0); %Eosinophils 0.6 % (0.0-10.0); %Lymphocytes 15.5 % (21.0-51.0); %Monocytes 9.8 % (0.0-10.0); Hemoglobin 11.8 g/dL (12.0-16.0); Mean Corpuscular HGB CONC 32.1 g/dL (32.0-36.0); Mean Corpuscular Hemoglobin 29.8 pg (27.0-31.0); Mean Corpuscular Volume 92.9 fl (81.0-99.0); Platelet Count 156 thou/uL (130-400); RBC Distribution Width 12.2 % (11.5-14.5); Red Blood Cell (RBC) Count 3.96 mill/uL (4.20-5.40); White Blood Cell (WBC) Count 7.6 thou/uL (4.8-10.8)
[2017-04-30 05:59] LABS: Anion Gap 15 mmol/L (10-20); BUN (Urea Nitrogen) 31 mg/dL (9.8-20.1); Calc. Creatinine Clearance 28 mL/min (70-130); Calcium 11.7 mg/dL (7.8-10.44); Carbon Dioxide 25 mmol/L (23-31); Chloride 104 mmol/L (98-107); Estimated GFR-MDRD 50; Glucose 77 mg/dL (83-110); Magnesium 2.3 mg/dL (1.6-2.6); Phosphorus 2.3 mg/dL (2.3-4.7); Potassium 3.8 mmol/L (3.5-5.1); Sodium 140 mmol/L (136-145)
[2017-04-30] MEDS: Famotidine/PF 20 mg/2ml Vial SLOW IVP SCH (08:18)
[2017-04-30] MEDS: Hydrochlorothiazide 25 MG TAB PO SCH (08:19)
[2017-04-30] MEDS: Sulfameth/Trimethoprim DS 800-160mg TAB PO SCH ×2 (08:19→23:32)
[2017-04-30] MEDS: Polyethylene Glycol 3350 17 GM Packet PO SCH (09:02)
--- NOTE | 2017-04-30 17:34 | PRG ---
DATE OF SERVICE: 04/30/2017 SUBJECTIVE: I have seen Ms. Headley today. At bedside is the patient's son and adult granddaeileen henry The patient is status post ground level fall with bilateral hemorrhagic contusions and left hemip legia. The patient has refused several cares overnight. She has indicated interesting in comfort ca re only. She has expressed these wishes to her son and adult granddaughter with full understanding t hat transferred to hospice will certainly lead to her demise. Overall, she has remained hemodynamically stable. OBJECTIVE: VITAL SIGNS: Today includes blood pressure 139/59, pulse 82, respiratory rate 16, maximum temperatur e in the last 24 hours is 98.6 degrees Fahrenheit, oxygen saturation is 97% on room air. HEENT: Reveals pupils equal, round, reactive to light and accommodation. HEART: Reveals regular rate and rhythm. No murmurs or gallops auscultated. CHEST: Lungs are clear to auscultation bilaterally. Her breathing is regular and unlabored. ABDOMEN: Soft, nontender and nondistended. NEUROLOGIC: Cranial nerves II-XII grossly intact bilaterally. The patient remains left hemiplegic. Motor function in the right upper and lower extremities 5/5 nevertheless. LABORATORY DATA: Today includes CBC with 7600 white blood cells, hemoglobin 11.8, hematocrit is 36.8 , platelet count is 156,000. Metabolic profile: Sodium 140, potassium is 3.8, chloride is 104, bic arbonate 25, BUN 31, creatinine is 1.05, glucose is 77, magnesium 2.3, phosphorus is 2.3. IMPRESSION: 1. Status post fall. 2. Bilateral acute hemorrhagic cerebral contusions. 3. 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 PLAN: In accordance with the patient's wishes, the patient is being seen today by hospice. Once the bed is available, the patient will be transferred to hospice where comfort care measures will be con tinued.
--- NOTE | 2017-04-30 22:05 | PRG ---
DATE OF SERVICE: 04/30/2017 SUBJECTIVE: This is an 87-year-old female status post fall, traumatic intracranial hemorrhage. She is currently interested in comfort care measures only and she has expressed these wishes to her famil y and possibly will be transferred to hospice. OBJECTIVE: VITAL SIGNS: Remain stable. Physical examination is unremarkable. ASSESSMENT AND PLAN: Continue with care as documented in daily progress note. Continue to monitor. At this time, we are awaiting bed placement for hospice measures and comfort care.
--- NOTE | 2017-04-30 23:38 | EKG ---
Test Reason : Blood Pressure : / mmHG Vent. Rate : 132 BPM Atrial Rate : 131 BPM P-R Int : 000 ms QRS Dur : 076 ms QT Int : 330 ms P-R-T Axes : 000 072 041 degrees QTc Int : 488 ms Atrial fibrillation with rapid ventricular response Abnormal ECG When compared with ECG of 26-APR-2017 23:13, (Unconfirmed) T wave inversion no longer evident in Inferior leads Confirmed by Ryan ENCINAS ([id number]) on 04/30/2017 11:38:11 PM Referred By: KENNEDY Confirmed By:Ryan ENCINAS
[2017-05-01] MEDS: Acetaminophen 1,000 MG in Premix Bag 1 BAG IVPB PRN ×2 (02:08→09:11)
[2017-05-01] MEDS: Levothyroxine Sodium 75 MCG TAB PO SCH (06:09)
[2017-05-01] MEDS ORDERED: Docusate Sodium 10 MG/1 ML Oral Suspension PO SCH (09:00)
[2017-05-01] MEDS ORDERED: Docusate Sodium 100 MG/10 ML UDCUP PO SCH (09:00)
[2017-05-01] MEDS: Famotidine/PF 20 mg/2ml Vial SLOW IVP SCH (09:03)
[2017-05-01] MEDS: Hydrochlorothiazide 25 MG TAB PO SCH (09:11)
[2017-05-01] MEDS: Sulfameth/Trimethoprim DS 800-160mg TAB PO SCH (09:11)
[2017-05-01] MEDS: Polyethylene Glycol 3350 17 GM Packet PO SCH (10:32)
[2017-05-01 12:46] VITALS: BP 146/54; TEMP 97.8
--- NOTE | 2017-05-02 06:41 | DIS ---
DATE OF ADMISSION: 04/23/2017 ADMITTING PHYSICIAN: Junior Odonnell M.D. CONSULTING PHYSICIANS: Dr. Daniel June, Cardiology. Dr. Ugo Staley, Neurosurgery. REASON FOR HOSPITALIZATION: Ground-level fall, striking her head on the concrete. HOSPITAL DIAGNOSES: 1. Bilateral subarachnoid hemorrhage. 2. Small left anterior frontal subdural hematoma. 3. Acute traumatic right temporal and right parietal cerebral contusion. PROCEDURES PERFORMED: None. DISCHARGE CONDITION: Poor. BRIEF HISTORY OF HOSPITALIZATION: Ms. Headley is an 87-year-old female who presented to [facility] as a transfer from [facility]. She apparently had a ground-level fall where she struc k her head on the concrete. In the ED, she was found to have bilateral subarachnoid and intraparench ymal hemorrhages. She was noted to have left-sided hemiparesis. She had a GCS of 15. Dr. Staley of Neurosurgery was consulted. No neurosurgical intervention was recommended. Dr. Daniel June, Cardiology, was consulted due to elevated troponins. The patient was not a candidate for any type of cardiac intervention due to her intracranial bleeds. She was admitted by the Trauma Service to the CCU for close neurologic monitoring. Repeat CT scan did not show any increase in hemorrhage. Over t he course of the following day, she was refusing all treatments. Palliative care was consulted. She indicated she was interested in comfort care only. She expresses wishes to her son and her granddau ghter. She expressed interest in being transferred to hospice care at home. Hospice was consulted a nd met with the patient in the hospital. In accordance with the patient's wishes, she was discharged home to be on hospice care. [facility] assumed care on discharge. The patient was seen and examined with Dr. Smith who agreed with the assessment and discharge plan.
== END 2017-05-01 12:40 | disposition hospice, home (50) | DRG 86 ==
LOC: ERS 18:41 → CCU 19:10 → IMCU/EMU 04-24 03:15 → 2SE 04-24 17:34 → SURG B 04-26 11:21 → 2NO 04-27 00:07 → SURG A 04-28 00:04
PROVIDERS: ADMIT Specialist; ATTEND Specialist
DX: S06.6X0A Traumatic subarachnoid hemorrhage without loss of consciousness, initial encounter (principal); G81.04 Flaccid hemiplegia affecting left nondominant side; S06.5X0A Traumatic subdural hemorrhage without loss of consciousness, initial encounter; I24.8 Other forms of acute ischemic heart disease; N39.0 Urinary tract infection, site not specified; E11.9 Type 2 diabetes mellitus without complications; E03.9 Hypothyroidism, unspecified; I10 Essential (primary) hypertension; W01.0XXA Fall on same level from slipping, tripping and stumbling without subsequent striking against object, initial encounter; M25.512 Pain in left shoulder; Z51.5 Encounter for palliative care; R40.2413 Glasgow coma scale score 13-15, at hospital admission; S06.330A Contusion and laceration of cerebrum, unspecified, without loss of consciousness, initial encounter; I48.0 Paroxysmal atrial fibrillation; Y93.01 Activity, walking, marching and hiking; Y92.008 Other place in unspecified non-institutional (private) residence as the place of occurrence of the external cause
CPT/HCPCS: 36415; 36416; 51702; 70450; 80048; 80076; 81001; 82553; 83735; 84100; 84443; 84484; 85025; 87077; 87086; 87186; 93005; 93010; 93306; 96374; A4216; G0390; G8978-GP-CM; G8979-GP-CK; G8987-GO-CL; G8988-GO-CJ; G8996-GN-CK; G8997-GN-CJ; J0131; J0282; J0360; J2405; J2550; J3475; J3480; J7050; J7070; Q0162; S0028